=== PATIENT | male | born 1975 | race African-American/Black ===

== ENCOUNTER 2017-01-27 12:35 | Emergency (ER) | payer MEDICAID ==
[~2017-01-27] VITALS: Ht 175.3 cm; Wt 77.1 kg
--- NOTE | 2017-01-27 12:58 | Emergency Room Report ---
History of Present Illness General Chief Complaint: Generalized Weakness Source: Patient Present Illness HPI Patient presents with complaints of general weakness He had an episode of vomiting after eating a hamburger yesterday afternoon Since then he feels that his body feels weak Later that night the patient had chicken wings and a porcine vomited that up as well Denies any fevers denies any chest pressures of breath patient had some minimal epigastric discomfort but mainly complains of not feeling well Denies any neck pain or photophobia denies any focal weakness Allergies: Coded Allergies: IBUPROFEN (Verified Allergy, Unknown, 01/27/17) Patient History Past Medical History: see triage record Pertinent Family History: none Reviewed Nursing Documentation: PMH: Agreed, PSxH: Agreed Nursing Documentation-PMH Past Medical History: No Stated History Review of Systems All Other Systems: negative except mentioned in HPI Physical Exam Vital Signs Date Time Temp Pulse Resp B/P Pulse Ox O2 Delivery O2 Flow Rate FiO2 01/27/17 12:43 97.9 73 18 116/81 98 Room Air Sp02 EP Interpretation: reviewed, normal General Appearance: well appearing, no apparent distress Head: normocephalic, atraumatic Eyes: bilateral eye EOMI, bilateral eye PERRL ENT: hearing grossly normal, normal pharynx, TMs + canals normal, uvula midline Neck: full range of motion, supple, no meningismus, no bony tend Respiratory: lungs clear, normal breath sounds, no rhonchi, no respiratory distress, no retraction, no accessory muscle use Cardiovascular #1: normal peripheral pulses, regular rate, rhythm, no edema, no gallop, no JVD, no murmur Gastrointestinal: normal bowel sounds, non tender, soft, no mass, no organomegaly, non-distended, no guarding, no hernia, no pulsatile mass, no rebound Genitourinary: no CVA tenderness Musculoskeletal: normal inspection Neurologic: oriented x3, responsive, home health administrator III-XII nml as tested, motor strength/ tone normal, sensory intact Psychiatric: mood/affect normal Skin: normal color, no rash, warm/dry, palpation normal Lymphatic: normal inspection, no adenopathy Medical Decision Making Diagnostic Impression: Primary Impression: Vomiting Additional Impression: Weakness ER Course With the history exam and presentation, multiple differentials considered, including but not limited to appendicitis, gastritis, cholecystitis, diverticulitis Patient's blood work is appropriate Patient's lower abdomen continues not to be tender on palpation Patient appears to be experiencing symptoms from likely gastrointestinal pathology At this time is stable for close outpatient followup Labs Test 01/27/17 13:10 White Blood Count 9.5 K/UL (4.8-10.8) Red Blood Count 5.08 M/UL (4.70-6.10) Hemoglobin 16.1 G/DL (14.2-18.0) Hematocrit 49.2 % (42.0-52.0) Mean Corpuscular Volume 97 FL (80-99) Mean Corpuscular Hemoglobin 31.6 PG (27.0-31.0) Mean Corpuscular Hemoglobin Concent 32.7 G/DL (32.0-36.0) Red Cell Distribution Width 12.1 % (11.6-14.8) Platelet Count 235 K/UL (150-450) Mean Platelet Volume 7.0 FL (6.5-10.1) Neutrophils (%) (Auto) 70.0 % (45.0-75.0) Lymphocytes (%) (Auto) 19.0 % (20.0-45.0) Monocytes (%) (Auto) 8.4 % (1.0-10.0) Eosinophils (%) (Auto) 1.6 % (0.0-3.0) Basophils (%) (Auto) 1.0 % (0.0-2.0) Sodium Level 137 mEQ/L (135-145) Potassium Level 3.6 mEQ/L (3.4-4.9) Chloride Level 99 mEQ/L (98-107) Carbon Dioxide Level 23 mEQ/L (20-30) Anion Gap 15 (5-15) Blood Urea Nitrogen 17 mg/dL (7-23) Creatinine 1.0 mg/dL (0.7-1.2) Estimat Glomerular Filtration Rate > 60 mL/min (>60) Glucose Level 93 mg/dL (74-106) Calcium Level 9.6 mg/dL (8.6-10.2) Total Bilirubin 1.2 mg/dL (0.0-1.2) Direct Bilirubin 0.2 mg/dL (0.1-0.3) Aspartate Amino Transf (AST/SGOT) 25 U/L (5-40) Alanine Aminotransferase (ALT/SGPT) 26 U/L (3-41) Alkaline Phosphatase 60 U/L (40-129) Total Protein 7.3 g/dL (6.6-8.7) Albumin 4.6 g/dL (3.5-5.2) Globulin 2.7 g/dL Albumin/Globulin Ratio 1.7 (1.0-2.7) Lipase 34 U/L (< 60) Urine Opiates Screen Negative (NEGATIVE) Urine Barbiturates Screen Negative (NEGATIVE) Phencyclidine (PCP) Screen Negative (NEGATIVE) Urine Amphetamines Screen Negative (NEGATIVE) Urine Benzodiazepines Screen Negative (NEGATIVE) Urine Cocaine Screen Negative (NEGATIVE) Urine Marijuana (THC) Screen Positive (NEGATIVE) Last Vital Signs Date Time Temp Pulse Resp B/P Pulse Ox O2 Delivery O2 Flow Rate FiO2 01/27/17 12:43 97.9 73 18 116/81 98 Room Air Status: improved Disposition: HOME, SELF-CARE Condition: Improved Scripts Ondansetron Odt* (ZOFRAN ODT*) 4 Mg Tab.rapdis 4 MG ORAL Q6H Y for Nausea & Vomiting, #10 TAB 0 Refills Prov: JENNIFER FORTUNE D.O. 01/27/17 Additional Instructions: Patient is provided with the discharge instructions notified to follow up with primary doctor in the next 2-3 days otherwise return to the er with any worsening symptoms. Please note that this report is being documented using [email or web address] technology. This can lead to erroneous entry secondary to incorrect interpretation by the dictating instrument. JENNIFER FORTUNE D.O. January 27, 2017 12:58
[2017-01-27 13:19] VITALS: BP 116/81
[2017-01-27 13:22] LABS: EOSINOPHILS % (AUTO) 1.6 % (0.0-3.0); MEAN CORPUSCULAR HEMOGLOBIN 31.6 PG (27.0-31.0); MEAN CORPUSCULAR HGB CONC 32.7 G/DL (32.0-36.0); MEAN CORPUSCULAR VOLUME 97 FL (80-99); MONOCYTES % (AUTO) 8.4 % (1.0-10.0); PLATELET COUNT 235 K/UL (150-450); RED BLOOD COUNT 5.08 M/UL (4.70-6.10); RED CELL DISTRIBUTION WIDTH 12.1 % (11.6-14.8); WHITE BLOOD COUNT 9.5 K/UL (4.8-10.8)
[2017-01-27 13:32] LABS: ALANINE AMINOTRANSFERASE 26 U/L (3-41); ALBUMIN/GLOBULIN RATIO 1.7 (1.0-2.7); ANION GAP 15 (5-15); ASPARTATE AMINO TRANSFERASE 25 U/L (5-40); CALCIUM 9.6 mg/dL (8.6-10.2); CARBON DIOXIDE 23 mEQ/L (20-30); CHLORIDE 99 mEQ/L (98-107); GLOMERULAR FILTRATION RATE > 60 mL/min (>60); HEMOLYSIS 7; LIPASE 34 U/L (< 60); POTASSIUM 3.6 mEQ/L (3.4-4.9); SODIUM 137 mEQ/L (135-145); TOTAL PROTEIN 7.3 g/dL (6.6-8.7)
[2017-01-27] MEDS ORDERED: ZOFRAN ODT4 MG ORAL (13:41)
[2017-01-27 13:44] LABS: BILIRUBIN,DIRECT 0.2 mg/dL (0.1-0.3)
[2017-01-27 13:49] VITALS: BP 116/81
== END 2017-01-27 13:51 | disposition home or self-care (01) ==
LOC: EMR 13:12
DX: R11.10 Vomiting, unspecified (principal); R53.1 Weakness; Z88.6 Allergy status to analgesic agent
CPT/HCPCS: 36415; 80053; 80300; 82248; 83690; 85025; 99282

== ENCOUNTER 2017-05-11 08:19 | Emergency (ER) | payer MEDICAID ==
[~2017-05-11] VITALS: Ht 175.3 cm; Wt 74.4 kg
[~2017-05-11 08:19] MED LIST: ZOFRAN ODT4 MG ORAL
[2017-05-11 08:40] VITALS: BP 105/74
[2017-05-11] MEDS ORDERED: TYLENOL EXTRA500 MG ORAL (09:26)
[2017-05-11 09:30] VITALS: BP 110/81
--- NOTE | 2017-05-11 10:03 | Emergency Room Report ---
History of Present Illness General Chief Complaint: Pain Source: Patient Present Illness HPI 42-year-old male presents ED complaining of left knee pain. States pain started a few days ago. Patient denies any recent trauma. Patient states he "walks a lot". Patient notes initially swelling which has since subsided with ice. Patient is pain as throbbing, 5/10, nonradiating. Patient states he is able to bear weight. Patient states last year he had knee surgery. States that he had "some ligament surgery" in [place]. No other aggravating relieving factors. Denies any other sensitive symptoms Allergies: Coded Allergies: IBUPROFEN (Verified Allergy, Unknown, 01/27/17) Patient History Past Medical History: none Past Surgical History: none Pertinent Family History: none Social History: Denies: smoking, alcohol use, drug use Immunizations: UTD Reviewed Nursing Documentation: PMH: Agreed, PSxH: Agreed Nursing Documentation-PMH Past Medical History: No History, Except For Review of Systems All Other Systems: negative except mentioned in HPI Physical Exam Vital Signs Date Time Temp Pulse Resp B/P (MAP) Pulse Ox O2 Delivery O2 Flow Rate FiO2 05/11/17 08:28 97.9 72 14 109/80 97 Room Air Sp02 EP Interpretation: reviewed, normal General Appearance: no apparent distress, alert, GCS 15, non-toxic Head: normocephalic, atraumatic Eyes: bilateral eye normal inspection, bilateral eye PERRL ENT: hearing grossly normal, normal pharynx, no angioedema, normal voice Neck: full range of motion, supple/symm/no masses Respiratory: chest non-tender, lungs clear, normal breath sounds, speaking full sentences Cardiovascular #1: regular rate, rhythm, no edema Cardiovascular #2: 2+ carotid (R), 2+ carotid (L), 2+ radial (R), 2+ radial (L) , 2+ dorsalis pedis (R), 2+ dorsalis pedis (L) Gastrointestinal: normal bowel sounds, non tender, soft, non-distended, no guarding, no rebound Rectal: deferred Genitourinary: normal inspection, no CVA tenderness Musculoskeletal: back normal, gait/station normal, normal range of motion, tender - L knee Neurologic: alert, oriented x3, responsive, motor strength/tone normal, sensory intact, speech normal Psychiatric: judgement/insight normal, memory normal, mood/affect normal, no suicidal/homicidal ideation Reflexes: 3+ bicep (R), 3+ bicep (L), 3+ tricep (R), 3+ tricep (L), 3+ knee (R) , 3+ knee (L) Skin: normal color, no rash, warm/dry, well hydrated Lymphatic: no adenopathy Procedures Splinting Splinting : Consent: Verbal Pre-Made Type: AMELIA wrap - L knee Pre-Proc Neuro Vasc Exam: normal Post-Proc Neuro Vasc Exam: normal Patient Tolerated: Well Complications: None Medical Decision Making Diagnostic Impression: Primary Impression: Knee pain Qualified Codes: M25.562 - Pain in left knee; G89.29 - Other chronic pain ER Course Hospital Course 42-year-old M presents to ED complaining of L knee pain. no recent trauma Differential diagnoses include: Fracture, dislocation, sprain, contusion Clinical course Patient placed on stretcher. After initial history and physical, I ordered xrays of L knee Xrays prelim read shows no acute fracture/dislocation. narrow joint spacing noted. evidence of prior surgery Discussed findings with patient. Recommend followup with ortho as outpatient Diagnosis - knee pain Stable and discharged to home with prescription for Tylenol. apply ice, keep elevated. weight bear as tolerated. Followup with PMD/ortho. Return to ED if symptoms recur or worsen Other X-Ray Diagnostic Results Other X-Ray Diagnostic Results : X-Ray ordered: L knee # of Views/Limited Vs Complete: 3 View Indication: Pain EP Interpretation: Yes Interpretation: no dislocation, no soft tissue swelling, no fractures Impression: No acute disease Interpreting ER Provider: Electronically signed by Saad Toth MD Last Vital Signs Date Time Temp Pulse Resp B/P (MAP) Pulse Ox O2 Delivery O2 Flow Rate FiO2 05/11/17 09:30 73 14 110/81 99 Room Air 05/11/17 08:40 97.3 Status: improved Disposition: HOME, SELF-CARE Condition: Stable Scripts Acetaminophen* (TYLENOL EXTRA STRENGTH*) 500 Mg Tablet 500 MG ORAL Q8H Y for Prn Headache/Temp > 101, #30 TAB 0 Refills Prov: SAAD TOTH M.D. 05/11/17 Patient Instructions: Knee Pain, [id number] SAAD TOTH M.D. May 11, 2017 10:03
--- NOTE | 2017-05-11 10:34 | Diagnostic Imaging Report ---
Indication: Pain 3 views of the left knee were obtained. Findings: There is no fracture identified. No joint effusion seen. Joint space narrowing and osteophyte formation demonstrated. Previous surgery as been performed up. There is a small clip like device in the upper part of the lateral femoral condyle. Impression: No acute findings. Osteoarthritis
== END 2017-05-11 09:41 | disposition home or self-care (01) ==
LOC: EMR 08:39
DX: G89.29 Other chronic pain (principal); M25.562 Pain in left knee; Z88.6 Allergy status to analgesic agent
CPT/HCPCS: 99283